=== PATIENT | female | born 1990 | race Caucasian/White ===

== ENCOUNTER 2023-09-30 17:50 | Emergency (ER) | payer BC ==
[~2023-09-30] VITALS: Ht 177.8 cm; Wt 72.6 kg
[2023-09-30] MEDS ORDERED: CEPHALEXIN500 M1 PO (18:11)
[2023-09-30] MEDS ORDERED: PERCOCET 5-3251 EACH PO (18:41)
== END 2023-09-30 18:47 | disposition home or self-care (01) ==
LOC: ED 17:50
DX: S81.811A Laceration without foreign body, right lower leg, initial encounter (principal); Z88.0 Allergy status to penicillin; W17.2XXA Fall into hole, initial encounter; Y93.01 Activity, walking, marching and hiking; Y92.89 Other specified places as the place of occurrence of the external cause; Y99.8 Other external cause status